=== PATIENT | male | born 1985 | race Caucasian/White ===

== ENCOUNTER 2018-05-16 17:21 | Emergency (ER) | payer MEDICAID, OTHER ==
[2018-05-16 17:42] VITALS: BMI 27.1
[2018-05-16] MEDS ORDERED: Magnesium Citrate Oral SOL (300 ml) PO ONE (18:13)
--- NOTE | 2018-05-16 18:15 | C.PDOC ---
History Of Present Illness 33 year old male presents to the emergency department with complaints of rash to his chest, back and arms which began today after wearing a polyester shirt for the first time. Patient also complains of crampy indigestion, which he states began after eating a chicken sreedhar salad last night. Time Seen by Provider: 05/16/18 17:55 Chief Complaint (Nursing): Abdominal Pain History Per: Patient History/Exam Limitations: no limitations Onset/Duration Of Symptoms: Hrs Current Symptoms Are (Timing): Still Present Possible Cause: Other (clothing) Associated Symptoms: Skin Rash. denies: Swelling, Trouble Swallowing, Dizziness Past Medical History Reviewed: Historical Data, Nursing Documentation, Vital Signs Vital Signs: Last Vital Signs Temp 97.8 F 05/16/18 17:42 Pulse 74 05/16/18 17:42 Resp 18 05/16/18 17:42 BP 158/90 H 05/16/18 17:42 Pulse Ox 100 05/16/18 17:42 - Medical History PMH: Gastritis (ON NO MEDS) Surgical History: No Surg Hx Family History: States: No Known Family Hx - Social History Hx Tobacco Use: No Hx Alcohol Use: No Hx Substance Use: No - Immunization History Hx Tetanus Toxoid Vaccination: Yes Hx Influenza Vaccination: No Hx Pneumococcal Vaccination: No Review Of Systems Except As Marked, All Systems Reviewed And Found Negative. Constitutional: Negative for: Fever, Chills Cardiovascular: Negative for: Chest Pain Respiratory: Negative for: Cough, Shortness of Breath Gastrointestinal: Positive for: Abdominal Pain. Negative for: Nausea, Vomiting, Diarrhea Skin: Positive for: Rash Physical Exam - Physical Exam Appears: Non-toxic, No Acute Distress Skin: Warm, Dry, Rash (rash in distribution with shirt to chest, arms, back) Head: Atraumatic, Normacephalic Eye(s): bilateral: Normal Inspection, PERRL, EOMI Nose: Normal Oral Mucosa: Moist Tongue: Normal Appearing, No Swelling Lips: Normal Appearing, No Swelling Gingiva: Normal Appearing Throat: Normal, No Erythema Neck: Normal, Supple Chest: Symmetrical, No Tenderness Cardiovascular: Rhythm Regular, No Murmur Respiratory: Normal Breath Sounds, No Rales, No Rhonchi, No Wheezing Gastrointestinal/Abdominal: Bowel Sounds (tympanic), Soft, No Tenderness, No Guarding, No Rebound Extremity: Normal ROM Neurological/Psych: Oriented x3, Normal Speech, Normal Cognition ED Course And Treatment O2 Sat by Pulse Oximetry: 100 (RA) Pulse Ox Interpretation: Normal Medical Decision Making Medical Decision Making: contact dermatitis due to a new polyester shirt he wore today chronic constipation/indigestion defers w/u w informed consent prefers opt laxative and diet exercise changes. Plan: Benadryl 50mg PO Magnesium Citrate 300ml Decadron 4mg IM Pepcid 20mg PO Prednisone 20mg PO Disposition Doctor Will See Patient In The: Office Counseled Patient/Family Regarding: Studies Performed, Diagnosis - Disposition Referrals: [facility] [Outside] [employer] [facility] [Outside] [facility] [Outside] Hayden Sanon Jr., MD [Medical Doctor] - Disposition: HOME/ ROUTINE Disposition Time: 18:15 Condition: GOOD Additional Instructions: rash: you were given Prednisone 20 mg, pepcid 20 mg, and Benadryl 50 mg Rash will improve over a few hours avoid polyester shirts indigestion Drink bottle of mag citrate tonight re-eval after 2-3 bowel movements diet and exercise changes Instructions: Contact Dermatitis (DC), Gas and Bloating (ED) Forms: [employer] [facility] (Yi) - Clinical Impression Clinical Impression: Abdominal colic, Skin rash - Scribe Statement The provider has reviewed the documentation as recorded by the Scribe (Luis A Lopez) Provider Attestation: All medical record entries made by the Scribe were at my direction and personally dictated by me. I have reviewed the chart and agree that the record accurately reflects my personal performance of the history, physical exam, medical decision making, and the department course for this patient. I have also personally directed, reviewed, and agree with the discharge instructions and disposition.
[2018-05-16] MEDS ORDERED: Magnesium Citrate Oral SOL (300 ml) ONE (18:27)
[2018-05-16] MEDS ORDERED: Dexamethasone 4 mg/1 ml IM STA (18:47)
[2018-05-16] MEDS ORDERED: DiphenhydrAMINE 50 mg/ml Inj IM STA (18:47)
[2018-05-16] MEDS ORDERED: DiphenhydrAMINE 50 mg/ml Inj ONE (18:55)
[2018-05-16] MEDS ORDERED: Dexamethasone 4 mg/1 ml ONE (18:55)
[2018-05-16 20:33] VITALS: BP 142/88; PULSE 86; RESP 20; TEMP 98; O2SAT 99
== END 2018-05-16 19:30 | disposition home or self-care (01) ==
LOC: C.ER 17:21
DX: R21 Rash and other nonspecific skin eruption (principal); R10.84 Generalized abdominal pain

== ENCOUNTER 2018-05-18 10:16 | Emergency (ER) | payer MEDICAID ==
[2018-05-18 10:16] VITALS: BMI 27.1
[2018-05-18 10:35] VITALS: BP 114/75; PULSE 103; RESP 18; TEMP 98.5; O2SAT 98
--- NOTE | 2018-05-18 12:07 | C.PDOC ---
History Of Present Illness 33 y/o male presents to the ER complaining of diffuse rash which has been present for the past 2 days. Patient states that he developed the rash after he wore a suit. Patient reports that he took the suit to the dry assistant front end manager and he was told that they used a "strong chemical." He notes that he is still wearing the suit. He states that he was evaluated for the rash in [place] [facility] 2 days ago and he was treated with Prednisone and Benadryl in the ER. He states that he has been taking Benadryl without relief at home. Denies having fever,chills, throat swelling, CP, and SOB. Time Seen by Provider: 05/18/18 11:36 Chief Complaint (Nursing): Allergic Reaction History Per: Patient History/Exam Limitations: no limitations Onset/Duration Of Symptoms: Days Current Symptoms Are (Timing): Still Present Associated Symptoms: Skin Rash Home/EMS Treatment: Benadryl Severity: Moderate Past Medical History Reviewed: Historical Data, Nursing Documentation, Vital Signs Vital Signs: Last Vital Signs Temp 98.5 F 05/18/18 10:30 Pulse 103 H 05/18/18 10:30 Resp 18 05/18/18 10:30 BP 114/75 05/18/18 10:30 Pulse Ox 98 05/18/18 10:30 - Medical History PMH: Gastritis (ON NO MEDS) Surgical History: No Surg Hx Family History: States: No Known Family Hx - Social History Hx Tobacco Use: No Hx Alcohol Use: No Hx Substance Use: No - Immunization History Hx Tetanus Toxoid Vaccination: Yes Hx Influenza Vaccination: No Hx Pneumococcal Vaccination: No Review Of Systems Except As Marked, All Systems Reviewed And Found Negative. Constitutional: Negative for: Fever, Chills ENT: Negative for: Throat Pain, Throat Swelling Cardiovascular: Negative for: Chest Pain Respiratory: Negative for: Shortness of Breath Skin: Positive for: Rash Physical Exam - Physical Exam Appears: Non-toxic, No Acute Distress, Other (awake,alert, oriented x3) Skin: Warm, Dry, Rash (diffuse urticaria to chest,abdomen,back, bilateral upper extremities, and bilateral lower extremities), Other (no cellulitis,no pustules, no excoriations) Head: Atraumatic, Normacephalic Eye(s): bilateral: Normal Inspection Nose: Normal Oral Mucosa: Moist Tongue: Normal Appearing, No Swelling Lips: Normal Appearing, No Swelling Throat: Normal, No Erythema, No Exudate, Other (uvula midline) Neck: Supple Chest: Symmetrical Cardiovascular: Rhythm Regular Respiratory: Normal Breath Sounds, No Rales, No Rhonchi, No Wheezing Neurological/Psych: Oriented x3, Normal Speech ED Course And Treatment O2 Sat by Pulse Oximetry: 98 (RA) Pulse Ox Interpretation: Normal Medical Decision Making Medical Decision Making: Patient has been instructed to change his suit and wear new clothing. Patient has been discharged with prescription for Methylprednisolone and instructed to follow up with PMD in 1-2 days. Disposition Counseled Patient/Family Regarding: Diagnosis, Need For Followup - Disposition Referrals: Hayden Sanon Jr., MD [Medical Doctor] - Disposition: HOME/ ROUTINE Disposition Time: 12:04 Condition: GOOD Additional Instructions: KAMALJIT ROBERT, thank you for letting us take care of you today. Your provider was Ally Mahajan MD and you were treated for ALLERGIC REACTION. The emergency medical care you received today was directed at your acute symptoms. If you were prescribed any medication, please fill it and take as directed. It may take several days for your symptoms to resolve. Return to the Emergency Department if your symptoms worsen, do not improve, or if you have any other problems. Please contact your doctor for a follow up visit in 1-2 days. Bring any paperwork you were given at discharge with you along with any medications you are taking to your follow up visit. Our treatment cannot replace ongoing medical care by a primary care provider outside of the emergency department. Thank you for allowing the [facility] team to be part of your care today. Prescriptions: Methylprednisolone [Medrol Dose Pack (21 tabs)] 4 mg PO DAILY #1 packet Instructions: Contact Dermatitis (DC), Hives (DC) Forms: [facility] (Croatian), General Discharge Instructions - POA Present On Arrival: None - Clinical Impression Clinical Impression: Allergic urticaria, Allergic contact dermatitis - Scribe Statement The provider has reviewed the documentation as recorded by the Tristenibtristen Downey Provider Attestation: All medical record entries made by the Scribe were at my direction and personally dictated by me. I have reviewed the chart and agree that the record accurately reflects my personal performance of the history, physical exam, medical decision making, and the department course for this patient. I have also personally directed, reviewed, and agree with the discharge instructions and di sposition.
== END 2018-05-18 12:16 | disposition home or self-care (01) ==
LOC: C.ER 10:16
DX: L23.9 Allergic contact dermatitis, unspecified cause (principal)

== ENCOUNTER 2018-06-02 02:51 | Emergency (ER) | payer MEDICAID ==
[2018-06-02 02:52] VITALS: BMI 27.1
[2018-06-02 03:04] VITALS: O2SAT 100
[2018-06-02] MEDS ORDERED: Sodium Chloride 0.9% 1,000 ML IV STA (03:54)
[2018-06-02] MEDS ORDERED: Alum-Mag Hydrox-Simethicone Susp (30 mL) PO STA (04:30)
[2018-06-02] MEDS ORDERED: Aluminum Hydroxide/Magnesium Hydroxide Susp (30 mL) ONE (04:35)
[2018-06-02 04:58] LABS: BASO # 0.1 K/uL (0.0-0.2); EOS # 0.4 K/uL (0.0-0.7); EOS % 4.8 % (0.0-4.0); HEMOGLOBIN 16.1 g/dL (12.0-18.0); LYMPH # 1.4 K/uL (1.0-4.3); MEAN CELL VOLUME 88.9 fL (80.0-94.0); MEAN CORPUSCULAR HEMOGLOBIN 30.3 pg (27.0-31.0); MEAN PLATELET VOLUME 10.7 fL (7.2-11.7); MONO # 0.9 K/uL (0.0-0.8); MONO % 10.4 % (0.0-10.0); NEUT # 5.9 K/uL (1.8-7.0); NEUT % 67.8 % (50.0-75.0); NRBC % 0.1 % (0.0-2.0); RBC 5.31 Mil/uL (4.40-5.90); RED CELL DISTRIBUTION WIDTH 13.3 % (11.5-14.5); WHITE BLOOD COUNT 8.7 K/uL (4.8-10.8)
[2018-06-02 05:10] LABS: ALB/GLOB RATIO 1.5 (1.0-2.1); ALBUMIN 4.6 g/dL (3.5-5.0); ALT/SGPT 42 U/L (21-72); AST/SGOT 33 U/L (17-59); BLOOD UREA NITROGEN 14 mg/dL (9-20); CALCIUM 9.6 mg/dl (8.6-10.4); GFR NON-AFRICAN AMERICAN > 60; LIPASE 237 U/L (23-300)
--- NOTE | 2018-06-02 05:20 | C.PDOC ---
History Of Present Illness 33 year old male, whose PMHx includes Gastritis, presents to the ED for evaluation of indigestion which began around one hour prior to arrival. Patient states he ate some fried chicken and beans around 1.5 hours ago, prior to the onset of his symptoms. Patient also reports some nausea and had one episode of vomiting in the ED. Patient reports feeling gassy and otherwise denies diarrhea, back pain or any urinary complaints at this time. Time Seen by Provider: 06/02/18 03:03 Chief Complaint (Nursing): Cough, Cold, Congestion History Per: Patient History/Exam Limitations: no limitations Onset/Duration Of Symptoms: Hrs Current Symptoms Are (Timing): Still Present Context: Food Radiation Of Pain To:: None Quality Of Discomfort: Gas Associated Symptoms: Nausea, Vomiting. denies: Diarrhea, Urinary Symptoms Additional History Per: Patient Past Medical History Reviewed: Historical Data, Nursing Documentation, Vital Signs Vital Signs: Last Vital Signs Temp 98.3 F 06/02/18 03:00 Pulse 74 06/02/18 03:00 Resp 18 06/02/18 03:00 BP 157/98 H 06/02/18 03:00 Pulse Ox 100 06/02/18 03:00 - Medical History PMH: Gastritis (ON NO MEDS) Surgical History: No Surg Hx Family History: States: Unknown Family Hx - Social History Hx Tobacco Use: No Hx Alcohol Use: No Hx Substance Use: No - Immunization History Hx Tetanus Toxoid Vaccination: Yes Hx Influenza Vaccination: No Hx Pneumococcal Vaccination: No Review Of Systems Constitutional: Negative for: Fever, Chills, Weakness Cardiovascular: Negative for: Chest Pain, Palpitations Respiratory: Negative for: Cough, Shortness of Breath Gastrointestinal: Positive for: Nausea, Vomiting, Other (abdominal gas/trinh gestion ). Negative for: Diarrhea Genitourinary: Negative for: Dysuria, Frequency, Hematuria Skin: Negative for: Rash Neurological: Negative for: Weakness, Numbness, Dizziness Physical Exam - Physical Exam Appears: Non-toxic, No Acute Distress, Other (appears uncomfortable ) Skin: Normal Color, Warm, No Rash Head: Atraumatic, Normacephalic Oral Mucosa: Moist Throat: Normal (no swelling or injection ), No Exudate, Other (airway patent ) Neck: Normal ROM, Supple Chest: Symmetrical Respiratory: No Accessory Muscle Use, Other (normal inspiratory effort) Gastrointestinal/Abdominal: Soft, No Tenderness, No Guarding, No Rebound Extremity: Normal ROM Extremity: Bilateral: Atraumatic Neurological/Psych: Oriented x3, Normal Cranial Nerves (grossly intact ) ED Course And Treatment - Laboratory Results Result Diagrams: 06/02/18 04:53 06/02/18 04:53 Lab Results: Total Bilirubin 0.5 mg/dL (0.2-1.3) 06/02/18 04:53 AST 33 U/L (17-59) 06/02/18 04:53 ALT 42 U/L (21-72) 06/02/18 04:53 Alkaline Phosphatase 93 U/L (38-126) 06/02/18 04:53 Total Protein 7.8 g/dL (6.3-8.3) 06/02/18 04:53 Albumin 4.6 g/dL (3.5-5.0) 06/02/18 04:53 Globulin 3.2 gm/dL (2.2-3.9) 06/02/18 04:53 Albumin/Globulin Ratio 1.5 (1.0-2.1) 06/02/18 04:53 Lipase 237 U/L (23-300) 06/02/18 04:53 O2 Sat by Pulse Oximetry: 100 (on RA) Pulse Ox Interpretation: Normal Medical Decision Making Medical Decision Making: Progress: Bloodwork and EKG ordered and reviewed. Given patient's history of gastritis and physical exam findings, will give antacids. Maalox PO, Pepcid PO, Protonix IVP, Zofran IVP and IV Fluids given. patient reports improvement in stomach pain after drinking maalox. Disposition Counseled Patient/Family Regarding: Diagnosis, Need For Followup, Rx Given - Disposition Referrals: [facility] [Outside] Disposition: HOME/ ROUTINE Disposition Time: 05:18 Condition: IMPROVED Prescriptions: Aluminum Hydroxide/Magnesium H [Maalox 30 ml] 30 ml PO TID #1 bottle Esomeprazole Magnesium [Nexium] 20 mg PO DAILY 30 Days ecc Instructions: Acid Reflux (Gastroesophageal Reflux Disease), Adult (DC) Forms: [facility] (German), General Discharge Instructions - Clinical Impression Clinical Impression: Acid reflux - PA / FORCE ADJUSTMENT SUPERVISOR / Resident Statement MD/DO has reviewed & agrees with the documentation as recorded. - Scribe Statement The provider has reviewed the documentation as recorded by the Scribe (Ana Parks) All medical record entries made by the Scribe were at my direction and personally dictated by me. I have reviewed the chart and agree that the record accurately reflects my personal performance of the history, physical exam, medical decision making, and the department course for this patient. I have also personally directed, reviewed, and agree with the discharge instructions and disposition.
[2018-06-02 05:54] VITALS: BP 143/87; PULSE 68; RESP 16; TEMP 98.7
--- NOTE | 2018-06-05 19:50 | CARD ---
APPROVED REPORT Date of service: 06/02/2018 EKG Measurement Heart [id number] MD [id number] <Conclusion> Normal sinus rhythm Normal ECG
== END 2018-06-02 05:54 | disposition home or self-care (01) ==
LOC: C.ER 02:51
DX: K21.9 Gastro-esophageal reflux disease without esophagitis (principal)
CPT/HCPCS: 80053; 83690; 85025; 93005; 96361; 96374; 96375; 99284; C9113; J2405; J7040